=== PATIENT | male | born 1975 | race Caucasian/White ===

== ENCOUNTER 2020-11-01 02:39 | Outpatient (CLI) | payer BC | END 2020-11-01 02:40 | disposition EMS.NT | LOC: EMS 02:39 | DX: F41.9 Anxiety disorder, unspecified (principal) ==

== ENCOUNTER 2020-11-01 11:39 | Emergency (ER) | payer BC, OTHER ==
--- NOTE | 2020-11-01 12:26 | ED Physician Documentation ---
PD HPI NVD - Stated complaint Stated Complaint: NAUSEA/NOT EATING - Chief complaint Chief Complaint: General - History obtained from History obtained from: Patient - History of Present Illness Timing - onset: How many days ago (has had feeling of nausea and poor appetite for days to week or so. Nausea worse today. Had feeling of anxiety today, and nausea worsened. He is feeling improved some here in ER.) Timing - details: Gradual onset, Still present Associated symptoms: Loss of appetite. No: Fever, Abdominal pain, Near syncope / syncope, Weight loss Contributing factors: No: Sick contact, Bad food, Recent antibiotics Improved by: No: Eating Worsened by: Eating Similar symptoms before: Has not had sx before Review of Systems Constitutional: denies: Fever, Chills Nose: denies: Rhinorrhea / runny nose, Congestion Throat: denies: Sore throat Respiratory: denies: Cough GI: reports: Nausea. denies: Abdominal Pain, Vomiting, Diarrhea Psychiatric: reports: Anxiety. denies: Depressed, Suicidal PD PAST MEDICAL HISTORY - Past Medical History Cardiovascular: None Respiratory: None Psych: Anxiety - Present Medications Home Medications: Ambulatory Orders Medication Instructions Recorded Confirmed Famotidine [Pepcid] 20 mg PO DAILY #20 tablet 11/01/20 Ondansetron Odt [Zofran] 4 mg TL Q6H PRN #10 tablet 11/01/20 - Allergies Allergies/Adverse Reactions: Allergies Allergy/AdvReac Type Severity Reaction Status Date / Time No Known Drug Allergies Allergy Verified 11/01/20 11:52 PD ED PE NORMAL - Vitals Vital signs reviewed: Yes - General General: Alert and oriented X 3, No acute distress, Well developed/nourished - Neck Neck: Supple, no meningeal sign, No adenopathy - Cardiac Cardiac: RRR, No murmur - Respiratory Respiratory: Clear bilaterally - Abdomen Abdomen: Normal bowel sounds, Soft, Non tender, Non distended - Derm Derm: Normal color, Warm and dry - Neuro Neuro: Alert and oriented X 3, No motor deficit, Normal speech Results - Vitals Vitals: Vital Signs - 24 hr 11/01/20 11/01/20 11:47 13:49 Temperature 36.9 C 36.8 C Heart Rate 92 84 Respiratory 18 16 Rate Blood Pressure 131/82 H 123/88 H O2 Saturation 99 96 Oxygen O2 Source Room air PD MEDICAL DECISION MAKING - ED course Complexity details: reviewed old records, considered differential, d/w patient Departure - Departure Disposition: 01 Home, Self Care Clinical Impression: Nausea, Upset stomach, Anxiety Condition: Stable Record reviewed to determine appropriate education?: Yes Prescriptions: Famotidine [Pepcid] 20 mg PO DAILY #20 tablet Ondansetron Odt [Zofran] 4 mg TL Q6H PRN #10 tablet PRN Reason: Nausea / Vomiting Comments: You can use ondansetron if needed for nausea. Commonly ongoing nausea and poor appetite can relate to irritation of the stomach. As such, try famotidine acid reducing medicine daily for a couple weeks or so. See if that helps to improve overall. Discharge Date/Time: 11/01/20 13:50
[2020-11-01] MEDS ORDERED: ONDANSETRON ODT 4 MG TABLET TL STA (13:02)
[2020-11-01] MEDS ORDERED: FAMOTIDINE 20 MG TABLET PO STA (13:03)
[2020-11-01] MEDS ORDERED: MAG HYDROX/AL HYDROX/SIMETH 30 ML UDC PO STA (13:03)
[2020-11-01 13:51] VITALS: BP 123/88
== END 2020-11-01 13:50 | disposition home or self-care (01) ==
LOC: ED 11:39
DX: R11.0 Nausea (principal); K30 Functional dyspepsia; F41.9 Anxiety disorder, unspecified
CPT/HCPCS: 99282; 99284; A9270; Q0162